=== PATIENT | male | born 1940 | race Caucasian/White ===

== ENCOUNTER 2022-10-17 09:58 | Outpatient (CLI) | payer MEDICARE, OTHER, SELFPAY ==
[2022-10-17 13:16] LABS: Chloride* 101 mmol/L (96-114); Potassium* 4.3 mmol/L (3.6-5.1); Sodium* 138 mmol/L (135-149)
[2022-10-17 13:18] LABS: Cholesterol* 134 mg/dL (90-199); Creatinine* 0.8 mg/dL (0.5-1.5); Estimated Glomerular Filt Rate 89 ml/min
[2022-10-17 13:19] LABS: Blood Urea Nitrogen* 20 mg/dL (7-30); Calcium* 9.8 mg/dL (8.4-10.6); Carbon Dioxide* 31 mmol/L (20-32); Glucose* 111 mg/dL (60-115); HDL Cholesterol* 51 mg/dL (>=40); LDL Cholesterol Calculated 66 mg/dL (<100); Triglycerides* 87 mg/dL (40-149)
[2022-10-17 13:50] LABS: PSA Screen* 1.51 ng/mL (0.10-4.00)
== END 2022-10-17 09:59 | disposition home or self-care (01) ==
PROVIDERS: PCP Internal Medicine; Visit Provider Internal Medicine
DX: E78.5 Hyperlipidemia, unspecified; N40.2 Nodular prostate without lower urinary tract symptoms; I10 Essential (primary) hypertension; Z12.5 Encounter for screening for malignant neoplasm of prostate
CPT/HCPCS: 80048; 80061; 84153

== ENCOUNTER 2022-10-30 13:32 | Emergency (ER) | payer MEDICARE, OTHER, SELFPAY ==
[2022-10-30 13:58] VITALS: BP 125/66; PULSE 78; RESP 18; TEMP 36.6; O2SAT 98; BMI 25.1
--- NOTE | 2022-10-30 14:23 | CRLHL7_ITS ---
For Patients: As a result of the Cures Act, medical imaging exams and procedure reports are released immediately into your electronic medical record. You may view this report before your referring provider. If you have questions, please contact your health care provider. Indication: Fall and anterior shoulder pain Technique: Left shoulder 3 views. Comparison: None Impression: There are degenerative changes of the acromioclavicular joint. Small fragment inferior to the glenoid which may represent small fracture fragment or more likely calcifications. No evidence of proximal humerus fracture or dislocation. Dictated by Prince Garcia MD @ 10/30/2022 3:20:38 PM (Electronically Signed)
--- NOTE | 2022-10-30 14:24 | ED_ITS ---
HPI - Fall General Chief Complaint: Fall/Minor Trauma Stated Complaint: Fall Shoulder Pain Time Seen by Provider: 10/30/22 13:59 History of Present Illness HPI Narrative: Rather active 82-year-old man presenting to the emergency department with complaint of left shoulder area pain. He was assisting and more elderly neighbor with her trash cans last night when he slipped and believes he fell directly on the shoulder or the anterior aspect. Has not noticed particular swelling or erythema. Has been using naproxen cream believe another [id number] treatment. This was unable to sleep due to the pain. He is review resisting movement of his left arm. Does have a history of right shoulder rotator cuff repair. Does not describe any radicular symptoms. Pain is with movement on the anterior aspect of the shoulder in particular. Did not hit his head there was no loss of consciousness no neck or back pain. Related Data Home Medications Medication Instructions Recorded Confirmed dorzolamide 22.3 mg-timolol 6.8 1 ophthalmic (eye) DAILY 10/17/22 10/17/22 mg/mL eye drops latanoprost 0.005 % eye drops 1 drp ophthalmic (eye) QDAY 10/17/22 10/17/22 omega-3 fatty acids 1,000 mg 1,000 mg PO QDAY 10/17/22 10/17/22 capsule saw palmetto PO DAILY 10/17/22 10/17/22 amitriptyline 10 mg tablet 10 mg PO BID 10/30/22 10/30/22 lorazepam 0.5 mg tablet 0.5 mg PO DAILY 10/30/22 10/30/22 tramadol 50 mg tablet 25 mg PO DAILY PRN pain 10/30/22 10/30/22 Previous Rx's Medication Instructions Recorded lorazepam 0.5 mg tablet 0.5 mg PO BID PRN anxiety #60 tabs 09/30/22 amitriptyline 10 mg tablet 10 mg PO BID #180 tabs 10/17/22 atorvastatin 40 mg tablet 40 mg PO QPM #90 tabs 10/17/22 valsartan 160 1 tab PO QDAY #90 tabs 10/17/22 mg-hydrochlorothiazide 12.5 mg tablet Allergies Allergy/AdvReac Type Severity Reaction Status Date / Time Cockroaches Allergy Severe allergy to Uncoded 10/17/22 09:23 feces Dust mites Allergy Mild Congested Uncoded 10/17/22 09:23 Review of Systems Status of ROS: Reports: 6 or more systems reviewed and unremarkable except as noted in History and below [facility] Medical History History of adenomatous polyp of colon (02/07/12) Surgical History History of arthroscopy of shoulder History of thumb surgery History of tonsillectomy (02/07/12) Status post cataract extraction Social History Smoking Status: Never smoker How often do you have a drink containing alcohol: monthly or less How many standard drinks containing alcohol do you have on a typical day: 1 or 2 AUDIT-C Alcohol total score: 1 Non-prescribed substance use: denies use Exam Narrative: Exam Narrative: Pleasant. Tall. Well-built. Head is atraumatic. Elevating his left shoulder. It seems generally a little swollen relative to the right. Neck is supple nontender back also nontender. Examination of the shoulder and chest there is no pain to palpation over the clavicle or the AC joint. He is sore to palpation over the anterior aspect of the humerus and the inferior to that into the neck a little bit. He has very limited internal rotation I think this is somewhat chronic does cause a little pain. Weakness to resisted internal rotation and good strength to external rotation. Limited also in neers. Abduction of the shoulder/arm elicits assistance and he has weakness to empty can testing. Intact flexion with good strength to the biceps. Sensation appears to be intact and well perfused distally. Const: Vital Signs, click to edit/add: Vital Signs - 24 hr 10/30/22 13:58 Temperature 97.8 F Pulse Rate [Right Pulse Oximeter] 78 Respiratory Rate 18 Blood Pressure [Ri ght Upper Arm] 125/66 Pulse Oximetry 98 Oxygen Delivery Me thod Room Air Documenting provider has reviewed patient's vital signs: yes Course Vital Signs Vital signs: Initial Vital Signs Temperature 97.8 F 10/30/22 13:58 Temperature Source Temporal Artery Scan 10/30/22 13:58 Pulse Rate 78 10/30/22 13:58 Pulse Rhythm 10/30/22 13:58 Respiratory Rate 18 10/30/22 13:58 Blood Pressure 125/66 10/30/22 13:58 Blood Pressure Mean 85 10/30/22 13:58 Blood Pressure Position Sitting 10/30/22 13:58 Pulse Oximetry 98 10/30/22 13:58 Oxygen Delivery Method 10/30/22 13:58 Vital Signs Temperature 97.8 F 10/30/22 13:58 Pulse Rate 78 10/30/22 13:58 Respiratory Rate 18 10/30/22 13:58 Blood Pressure 125/66 10/30/22 13:58 Pulse Oximetry 98 10/30/22 13:58 Oxygen Delivery Method 10/30/22 13:58 Temperature 97.8 F 10/30/22 13:58 Pulse Rate 78 10/30/22 13:58 Respiratory Rate 18 10/30/22 13:58 Blood Pressure 125/66 10/30/22 13:58 Pulse Oximetry 98 10/30/22 13:58 Oxygen Delivery Method 10/30/22 13:58 MDM - Fall MDM Narrative Medical decision making narrative: I think less likely a fracture and more likely shoulder strain/rotator cuff injury. Does need shoulder imaging though. Three-view of the left shoulder reviewed by me shows humerus in place. There is a small fragment on the inferior aspect of the glenoid wear I am not sure of significance. He was not actually tender to biceps flexion has good strength there. This would be near area of insertion for that. This might simply be osteoarthritic I would think involvement of subscapularis and supraspinatus given exam. Has own arm sling. Discharge Plan Discharge Clinical Impression: Injury of left rotator cuff, Left shoulder strain Patient Disposition: Home, Self-Care Condition: Stable Additional Instructions: Rest your shoulder over this next week by using the arm sling. I would continue to ice it 2 - 3 times daily over the next few days. I like the screw top icing bags. See handout on exercises for rotator cuff injury. Call to Orthopedics for follow-up this next week on advice of the emergency department. Call today if possible to schedule with them - phone number [phone] Over-read of images are pending. Can take up to 600 mg of ibuprofen per dose or up to 100 mg of your tramadol per dose. Prescriptions: No Action saw pratik PO DAILY latanoprost 0.005 % drops 1 drp ophthalmic (eye) QDAY dorzolamide-timolol 22.3-6.8 mg/mL drops 1 ophthalmic (eye) DAILY omega-3 fatty acids 1,000 mg capsule 1,000 mg PO QDAY amitriptyline 10 mg tablet 10 mg PO BID Qty: 180 3RF atorvastatin 40 mg tablet 40 mg PO QPM Qty: 90 3RF valsartan-hydrochlorothiazide 160-12.5 mg tablet 1 tab PO QDAY Qty: 90 3RF lorazepam 0.5 mg tablet 0.5 mg PO DAILY amitriptyline 10 mg tablet 10 mg PO BID tramadol 50 mg tablet 25 mg PO DAILY PRN (Reason: pain) lorazepam 0.5 mg tablet 0.5 mg PO BID PRN (Reason: anxiety) Qty: 60 0RF Follow Up/Referrals: Anupama Hays MD [Primary Care Provider] - Stand Alone Forms: [facility] Info Instructions
--- OUTSIDE RECORDS SUMMARY | 2022-10-30 14:55 | XMS_ITS | Clinical Summary ---
:1940 Author Organization [facility] [place] [address] Care Team Providers Name Role Phone Anupama Hays MD Primary Care Provider Allergies Active Allergy Reactions Severity Noted Date Comments Dust Mites Hives Low 08/30/2019 Medications Medication Sig Dispensed Refills Start Date End Date Status valsartan-hydrochlorot Take 1 tablet by 0 Active hiazide (DIOVAN HCT) mouth once daily. 320-25 mg per tablet amitriptyline (ELAVIL) Take 10 mg by 0 Active 10 mg tablet mouth at bedtime. LORazepam (ATIVAN) 0.5 Take 0.5 mg by 0 Active mg Tab mouth once daily. atorvastatin (LIPITOR) Take 20 mg by 0 Active 20 mg tablet mouth once daily. traMADol (ULTRAM) 50 Take 1 tablet by 0 12/25/2015 Active mg tablet mouth 2 times daily. dorzolamide-timolol Place 1 Drop into 12 08/24/2019 Active (COSOPT) 2-0.5 % both eyes 2 times ophthalmic solution daily. latanoprost (XALATAN) INSTILL ONE DROP 99 08/24/2019 Active 0.005 % ophthalmic IN BOTH EYES AT solution BEDTIME triamcinolone Apply topically to 80 g 1 08/06/2022 Active (ARISTOCORT; KENALOG) affected area(s) 0.1 % three times daily. creamIndications: Bee sting, undetermined intent, initial encounter Active Problems Problem Noted Date Prostate nodule 12/25/2015 Encounters Date Type Specialty Care Team Description 08/06/2022 Office Visit Kimberli Tom, RAQUEL Bee Stin g; Derm Problem 08/06/2022 Travel 08/06/2022 Telephone Alyssa Henriquez, RN Bee Sting (L forearm/) from Last 3 Months Immunizations Name Administration Dates Next Due AMB Influenza, IIV4 PF (=>6 mos Flulaval,Fluzone 08/30/2019 Fluarix)(Flu Clinic Only) COVID-19 vaccine (Flossonic 30mcg/0.3mL) PF, 1, 01/03/2021 MDV Influenza Virus, Unspecified 09/09/2021 Influenza, High-dose Inactivated 11/08/2015 Pneumococcal conj 13-Valent (Prevnar 13) 07/12/2015 Tdap 07/12/2015 Zoster (Zostavax-ZVL, live) 12/01/2012 Social History Tobacco Use Types Packs/Day Years Used Date Former Smoker Cigarettes Smokeless Tobacco: Never Used Tobacco Cessation: Counseling Given: Yes Comments: Social smoker only- does not r ecregino when he quit. Alcohol Use Standard Drinks/Week Comments Yes 0 (1 standard drink = 0.6 oz pure alcoho l) 1 drink per week Alcohol Habits Answer Date Recorded How often do you have a drink containing alcohol? 2-4 times a month 08/30/2019 How many drinks containing alcohol do you have on a 1 or 2 08/30/2019 typical day when you are drinking? How often do you have six or more drinks on one Never 08/30/2019 occasion? Comment: 1 drink per week 10/01/2021 Sex Assigned at Date Recorded Not on file Obstetrics History Last Filed Vital Signs Vital Sign Reading Time Taken Comments Blood Pressure 122/70 08/06/2022 2:38 PM CDT Pulse 63 08/06/2022 2:38 PM CDT Temperature 36.6 ??C (97.9 ??F) 08/06/2022 2:38 PM CDT Respiratory Rate 16 08/06/2022 2:38 PM CDT Oxygen Saturation 99% 08/06/2022 2:38 PM CDT Inhaled Oxygen Concentration - - Weight 86.2 kg (190 lb) 08/06/2022 2:38 PM CDT Height 182.9 cm (6') 08/18/2017 9:45 AM CDT Body Mass Index 25.77 08/18/2017 9:45 AM CDT Plan of Treatment Health Maintenance Due Date Last Done Comments Medicare Wellness for age 65+ 2007 Zoster (shingles) series for age 0201/26/2013 12/01/2012 50+ (2 of 3) Pneumococcal series for age 65+ (2 07/12/2016 07/12/2015 - PPSV23 if available, else PCV20) BMI (ht and wt on same day) for 08/18/2018 08/18/2017, 12/02 age 18+ COVID-19 vaccine series (5 - 06/27/2022 05/02/2022, 021, Booster for Pfizer series) 01/24/2021, Additiona l history exists Influenza for age 65+ 08/01/2022 09/09/2021, 08/30/2019, 11/08/2015 Depression screening for age 12+ 11/02/2022 11/02/2021 Tetanus booster 07/12/2025 07/12/2015 Tdap Completed 07/12/2015 Results Not on filefrom Last 3 Months Insurance Payer Benefit Plan / Subscriber ID Effective Dates Phone Addre ss Type Group MEDICARE PART B MEDICARE PART B [id number] 2007-Present ATTN: CLAIMS - HB USE ONLY HB ONLY [address] [place] [address] MEDICARE - PB MEDICARE PB [id number] 2007-Present ATT N: CLAIMS USE ONLY ONLY [address] [place] [address] [employer] [id number] 2019-Presen [address] [place] [address] Advance Directives Latest Code Status on File Code Status Date Activated Date Inactivated Comments Full Code 09/30/2012 10:55 AM 10/01/2012 2:26 AM Care Teams Progressive Care Unit Registered Nurse Relationship Specialty Start Date End Date Anupama Hays MD PCP - General Internal Medicine 09/23/121999 [facility] [place] [address]
--- NOTE | 2022-10-30 15:09 | ED.NURSE ---
DC teaching complete, all questions answered. Patient already has a sling, declines offer of sling today. Rotator cuff handout from Dr. Reaves provided. Patient will schedule follow up with ortho. Denies questions/concerns, patient leaves ED ambulatory.
== END 2022-10-30 15:39 | disposition home or self-care (01) ==
PROVIDERS: Emergency Provider Family Medicine; PCP Internal Medicine
DX: S46.012A Strain of muscle(s) and tendon(s) of the rotator cuff of left shoulder, initial encounter (principal); W01.0XXA Fall on same level from slipping, tripping and stumbling without subsequent striking against object, initial encounter
CPT/HCPCS: 73030; 99283

== ENCOUNTER 2022-11-19 09:57 | Outpatient (CLI) | payer MEDICARE, OTHER, SELFPAY ==
--- NOTE | 2022-11-19 10:15 | MR_ITS ---
[address] [address] Phone:?[phone] Fax:?[phone] Referring Physician Information: Joel Mo M.D. [id number] [facility] [address] Phone:?[phone] Fax:?[phone] Patient:?Nate Haider D.O.B:?1940 Sex:?Male Phone:?[phone] [facility] MRN:?[id number] Exam Date:?11/19/2022 ? EXAM: MRI of the LEFT SHOULDER, without contrast CLINICAL: Slipped on ice on October 30, 2022. Evaluate for rotator cuff tear. COMPARISONS: None available. TECHNICAL: MRI sequences of the left shoulder: Axials: PD, PDFS Coronals: PD, T2FS Sagittals: PDFS, T2 SEDATION: None. CONTRAST: None. FINDINGS: Rotator cuff: Supraspinatus/Infraspinatus: There is full-thickness tearing throughout the distal supraspinatus tendon with retraction of torn tendon fibers by approximately 2.2 cm. Mild edema along the periphery of the muscle. Mild tendinosis of the distal infraspinatus tendon, which otherwise appears intact. No significant fatty atrophy of the muscle bellies. Teres minor: No tendinosis, tear or atrophy. Subscapularis: Full-thickness tearing throughout the distal tendon with retraction of torn tendon fibers by approximately 2.3 cm. Associated increased fluid/hematoma within the superior aspect of the muscle belly. No evidence of significant fatty atrophy at this time. Bursae: Subacromial-subdeltoid: Increased fluid within the bursa secondary to full- thickness rotator cuff tendon tearing. Subcoracoid: No convincing subcoracoid bursal thickening/bursitis. Coracoacromial arch: Acromion morphology: Type I. No os acromiale. Acromiohumeral space: Within normal limits. Coracohumeral space: Within normal limits. Biceps tendon, long head: Moderate tendinosis of the intra-articular tendon. There is medial subluxation of the tendon as it extends along the superior aspect of the bicipital groove. No tendon disruption. Glenohumeral joint: Physiologic volume of joint fluid. Articular cartilage: Grade 2-3 chondral thinning is seen to involve the glenoid and inferomedial humeral head. Capsule: There is mild thickening and increased signal involving the inferior glenohumeral ligament with mild soft tissue edema about the inferior glenohumeral ligament consistent with sprain injury. Labrum: Scattered degenerative changes involve the majority of the glenoid labrum. Small perilabral cyst along the superior labrum/glenoid as seen on coronal series 4 images 12-13. Bones: Minimal degenerative peripheral marginal spurring involving the glenohumeral joint. Small subchondral cystic change involves the inferior glenoid with minimal subchondral reactive edema involving the inferomedial humeral head. No osseous fracture site is identified. Acromioclavicular joint: Advanced changes of arthrosis. No AC joint injury/widening. IMPRESSION: 1. Full-thickness tearing throughout the distal supraspinatus tendon with retraction of torn tendon fibers by approximately 2.2 cm. 2. Full-thickness tearing throughout the distal subscapularis tendon with retraction of torn tendon fibers by approximately 2.3 cm. 3. Moderate tendinosis of the intra-articular long head biceps tendon, with medial subluxation of the long head biceps tendon as it extends along the superior aspect of the bicipital groove. 4. Mild sprain injury involving the inferior glenohumeral ligament. 5. Scattered degenerative changes involving the majority of the glenoid labrum. 6. Grade 2-3 chondral thinning involving the glenoid and inferomedial humeral head. Mild osseous changes of glenohumeral arthrosis. 7. Advanced AC joint arthrosis. [facility] Electronically signed on 11/22/2022 8:15:00 PM by Neel Almanza D.O.
== END 2022-11-19 09:58 | disposition home or self-care (01) ==
LOC: MRI 09:58
PROVIDERS: PCP Internal Medicine; Visit Provider Orthopaedic Surgery
DX: M25.512 Pain in left shoulder (principal); M75.102 Unspecified rotator cuff tear or rupture of left shoulder, not specified as traumatic; M19.012 Primary osteoarthritis, left shoulder; S43.432A Superior glenoid labrum lesion of left shoulder, initial encounter
CPT/HCPCS: 73221

== ENCOUNTER 2023-09-09 10:12 | Outpatient (CLI) | payer MEDICARE, OTHER, SELFPAY | END 2023-09-09 10:13 | disposition home or self-care (01) | PROVIDERS: PCP Internal Medicine; Visit Provider Internal Medicine | DX: I10 Essential (primary) hypertension (principal); E78.5 Hyperlipidemia, unspecified | CPT/HCPCS: 80048; 80061 ==

== ENCOUNTER 2023-10-13 12:50 | Outpatient (CLI) | payer MEDICARE, OTHER, SELFPAY | END 2023-10-13 12:51 | disposition home or self-care (01) | LOC: RAD 12:51 | PROVIDERS: PCP Internal Medicine; Visit Provider Internal Medicine | DX: I35.0 Nonrheumatic aortic (valve) stenosis (principal) | CPT/HCPCS: 93306 ==

== ENCOUNTER 2024-03-23 17:35 | Emergency (ER) | payer MEDICARE, OTHER, SELFPAY ==
[2024-03-23 17:41] VITALS: BP 148/77; PULSE 72; RESP 20; TEMP 36.6; O2SAT 99; BMI 24.4
--- NOTE | 2024-03-23 17:57 | ED.GENADULT ---
HPI - General Adult General Chief complaint: Fall/Minor Trauma Stated complaint: Fell off a shovel, right side lacerations Time Seen by Provider: 03/23/24 17:40 History of Present Illness HPI narrative: Patient fell backward onto a retaining wall while balancing both feet on a shovel to dig a hole. No LOC and did not hit head. Has pain on right side of back below ribs and abrasions/ shearing to right forearm and elbow area. 84-year-old man presenting to the emergency department after falling off of a shovel. Had been balancing on at, standing on it to 8 in getting into the dirt. Slipped backward into a retaining wall. Did not strike his head. There was no loss of consciousness. No neck pain. Did scrape up his right arm. Primary complaint is pain in the right mid back. Rotation, standing up really exacerbates pain. Is breathing okay. Related Data Home Medications Medication Instructions Recorded Confirmed dorzolamide 22.3 mg-timolol 6.8 1 ophthalmic (eye) DAILY 10/17/22 10/08/23 mg/mL eye drops latanoprost 0.005 % eye drops 1 drp ophthalmic (eye) QDAY 10/17/22 10/08/23 omega-3 fatty acids 1,000 mg 1,000 mg PO QDAY 10/17/22 10/08/23 capsule saw palmetto PO DAILY 10/17/22 10/08/23 Previous Rx's Medication Instructions Recorded amitriptyline 10 mg tablet 20 mg (2 x 10 mg) PO QHS #180 tabs 09/09/23 atorvastatin 40 mg tablet 40 mg PO QPM #90 tabs 09/09/23 valsartan 160 1 tab PO QDAY #90 tabs 12/02/23 mg-hydrochlorothiazide 12.5 mg tablet lorazepam 0.5 mg tablet 0.5 mg PO BID PRN anxiety #60 tabs 01/01/24 tramadol 50 mg tablet 25 - 50 mg (0.5 - 1 x 50 mg) PO 02/10/24 Q6H PRN pain #120 tabs Allergies Allergy/AdvReac Type Severity Reaction Status Date / Time Cockroaches Allergy Severe allergy to Uncoded 10/08/23 09:18 feces Dust mites Allergy Mild Congested Uncoded 10/08/23 09:18 Review of Systems Status of ROS: Reports: 6 or more systems reviewed and unremarkable except as noted in History and below [facility] Surgical History Status post cataract extraction ?Z98.49 - Cataract extraction status, unspecified eye (ICD-10) History of tonsillectomy (02/07/12) ?Z90.89 - Acquired absence of other organs (ICD-10) History of thumb surgery (02/07/17) ?Z98.890 - Other specified postprocedural states (ICD-10) History of arthroscopy of shoulder (07/12/16) ?Z98.890 - Other specified postprocedural states (ICD-10) Social History Smoking Status: Never smoker How often do you have a drink containing alcohol: monthly or less How many standard drinks containing alcohol do you have on a typical day: 1 or 2 AUDIT-C Alcohol total score: 1 Non-prescribed substance use: denies use Little interest or pleasure in doing things: not at all Feeling down, depressed, or hopeless: not at all Exam Narrative: Exam Narrative: Pleasant. Restless. Seated gingerly at the edge of the bed. Head is atraumatic. Cranial nerves 2-12 intact. Lungs are clear with equal expansion excursion the chest. Neck is nontender. Midline back is nontender. Hard to find a point of tenderness in particular but I do see in the low right mid ribs underneath the perispinal musculature. Is not sore in the soft flank. I do not see outward indication of injury/bruising/erythema. Abdomen otherwise is soft and nontender. Moving all extremities without difficulty. Examination of the right arm shows skin tear along the extensor surface irregular without replaced double tissue really along the extensor forearm. Larger skin tear maximal dimension a little more than 2 in superior to the right elbow on the back of the lower upper arm. Flexes and extending the elbow without apparent difficulty. Oozing a little blood but generally controlled. No injury apparently to the joint. Heart in regular rate and rhythm. Const: Vital Signs, click to edit/add: Vital Signs - 24 hr 03/23/24 17:41 Temperature 97.9 F Pulse Rate [Pulse Oximeter] 72 Respiratory Rate 20 Blood Pressure [Ri ght Upper Arm] 148/77 H Pulse Oximetry 99 Oxygen Delivery Me thod Room Air Documenting provider has reviewed patient's vital signs: yes Course Vital Signs Vital signs: Initial Vital Signs Temperature 97.9 F 03/23/24 17:41 Temperature Source Temporal Artery Scan 03/23/24 17:41 Pulse Rate 72 03/23/24 17:41 Respiratory Rate 20 03/23/24 17:41 Blood Pressure 148/77 H 03/23/24 17:41 Blood Pressure Mean 100 03/23/24 17:41 Blood Pressure Position Sitting 03/23/24 17:41 Pulse Oximetry 99 03/23/24 17:41 Oxygen Delivery Method Room Air 03/23/24 17:41 Vital Signs Temperature 97.9 F 03/23/24 17:41 Pulse Rate 72 03/23/24 17:41 Respiratory Rate 20 03/23/24 17:41 Blood Pressure 148/77 H 03/23/24 17:41 Pulse Oximetry 99 03/23/24 17:41 Oxygen Delivery Method Room Air 03/23/24 17:41 Temperature 97.9 F 03/23/24 17:41 Pulse Rate 72 03/23/24 17:41 Respiratory Rate 20 03/23/24 17:41 Blood Pressure 148/77 H 03/23/24 17:41 Pulse Oximetry 99 03/23/24 17:41 Oxygen Delivery Method Room Air 03/23/24 17:41 Medical Decision Making MDM Narrative Medical decision making narrative: I do not think that the arm will require imaging. We will repair the skin tears though; at least replace them. Would also x-ray the right chest. Does not involve the lower flank I do not think that there is likely to be a kidney injury here. Contemplated urinalysis but this was not ultimately done prior to departure. Forearm is cleansed and bandaged with bacitracin. I would do return to examine again removing a small amount of tissue. After cleansing again above the right elbow with Shur-Clens, I did replace this flap of T shaped laceration and covered with Tegaderm. Given more supplies for discharge. X-ray of the right ribs with PA chest by my read is without clear rib fracture. Nothing notably displaced. I would doubt liver injury as well. Oxygenating well. I am not sure that a rib binder in this case would be beneficial might actually cause him more discomfort. This could simply be a bruised rib; also painful. He is quite concerned though about his pain. Notes that he takes tramadol regularly for back pain and wondering what else he could have at least to get by temporarily. We discussed options. Will be prescribing small quantity of [place]. See patient discharge plan for further discussion Over-read by radiology available Study:?XRay-Chest Right RIBS-03/23/2024 6:52:46 PM Ordering Physician:?DR REAVES Final Report: INDICATION: Fall. Rib injury. COMPARISON: None. TECHNIQUE: Frontal view of the chest. Dedicated views of the right ribs. FINDINGS: Lungs are clear. No pleural effusion. No pneumothorax. Normal cardiomediastinal silhouette. No displaced fractures of the right ribs. IMPRESSION: No acute findings. Lab Data Labs: Lab Results 03/23/24 Range/Units 18:40 Urine Color Yellow (Yellow) Urine Appearance Clear (Clear) Urine pH 6.0 (5.0-8.5) Ur Specific Knapp >= 1.030 (1.000-1.030) Urine Protein Negative (Negative) Urine Glucose (UA) Negative (Negative) Urine Ketones Negative (Negative) Urine Blood Negative (Negative) Urine Nitrite Negative (Negative) Urine Bilirubin Negative (Negative) Urine Urobilinogen 0.2 (0.2-1.0) Ur Leukocyte Esterase Negative (Negative) Urine RBC 0-2 (0-2) Urine WBC 0-2 (0-5) Ur Squamous Epith Cells None (None-Few) Urine Bacteria None (None) Discharge Plan Discharge Clinical Impression: Acute flank pain, Rib pain on right side, Multiple skin tears Patient Disposition: Home w/ Parent or Adult Condition: Improved Additional Instructions: Change dressing daily over your forearm with antibiotic ointment and Telfa. One week I think should be sufficient. Above the elbow try to keep that Tegaderm on until it just falls off trimming edges as a peel-away to encourage adherence or replace with another as necessary or change to Telfa and antibiotic if you prefer. Return for persistent and increasing, uncontrolled pain or shortness of breath, fever, hematuria. Can take up to 800 mg of ibuprofen or up to 1000 mg of acetaminophen per dose. Alternative to the ibuprofen might be up to 500 mg naproxen 2 times daily. [place] from [facility]. If Radiology sees something more in your imaging I will give you a call. Prescriptions: No Action atorvastatin 40 mg tablet 40 mg PO QPM Qty: 90 3RF amitriptyline 10 mg tablet 20 mg PO QHS Qty: 180 3RF saw palmetto PO DAILY latanoprost 0.005 % drops 1 drp ophthalmic (eye) QDAY dorzolamide-timolol 22.3-6.8 mg/mL drops 1 ophthalmic (eye) DAILY omega-3 fatty acids 1,000 mg capsule 1,000 mg PO QDAY valsartan-hydrochlorothiazide 160-12.5 mg tablet 1 tab PO QDAY Qty: 90 2RF lorazepam 0.5 mg tablet 0.5 mg PO BID PRN (Reason: anxiety) Qty: 60 3RF tramadol 50 mg tablet 25 - 50 mg PO Q6H PRN (Reason: pain) Qty: 120 3RF Follow Up/Referrals: Anupama Hays MD [Primary Care Provider] - Stand Alone Forms: [facility] Info Instructions
--- NOTE | 2024-03-23 18:11 | XR_ITS ---
Patient: LANI RYDER Facility:?[facility] Patient ID:?[id number] Site Patient ID:?[id number]. Site :?[id number] Study:?XRay-Chest Right RIBS-03/23/2024 6:52:46 PM Ordering Physician:?DR BARKER Final Report: INDICATION: Fall. Rib injury. COMPARISON: None. TECHNIQUE: Frontal view of the chest. Dedicated views of the right ribs. FINDINGS: Lungs are clear. No pleural effusion. No pneumothorax. Normal cardiomediastinal silhouette. No displaced fractures of the right ribs. IMPRESSION: No acute findings. Dictated by Deepak Otto MD @ 03/23/2024 11:14:10 PM Signed by:?Deepak Otto MD @03/23/2024 11:14:10 PM (Electronic Signature)
[2024-03-23 18:50] LABS: Appearance Urine Clear (Clear); Bilirubin Urine Negative (Negative); Blood Urine Negative (Negative); Color Urine Yellow (Yellow); Glucose Urine Negative (Negative); Ketones Urine Negative (Negative); Leukocyte Esterase Urine Negative (Negative); Nitrite Urine Negative (Negative); Protein Urine Negative (Negative); Specific Gravity Urine >= 1.030 (1.000-1.030); Urobilinogen Urine 0.2 (0.2-1.0)
--- OUTSIDE RECORDS SUMMARY | 2024-03-23 18:54 | XMS_ITS | Clinical Summary ---
Author Name Unknown Organization [facility] Address [place], [place] [address] Care Team Providers Care Social Media Assistant Name Role Phone Anupama Hays MD Primary Care Provider [phone] Allergies Active Allergy Reactions Criticality Noted Date Comments Dust Mites Hives Low 08/30/2019 Medications Medication Sig Dispensed Refills Start Date End Date Status valsartan-hydrochlorot hiazide (DIOVAN HCT) 320-25 mg per tablet Take 1 tablet by mouth once daily. Active amitriptyline (ELAVIL) 10 mg tablet Take 10 mg by mouth at bedtime. Active LORazepam (ATIVAN) 0.5 mg Tab Take 0.5 mg by mouth once daily. Active atorvastatin (LIPITOR) 20 mg tablet Take 20 mg by mouth once daily. Active traMADol (ULTRAM) 50 mg tablet Take 1 tablet by mouth 2 times daily. 0 12/25/2015 Active dorzolamide-timolol (COSOPT) 2-0.5 % ophthalmic solution Place 1 Drop into both eyes 2 times daily. 12 08/24/2019 Active latanoprost (XALATAN) 0.005 % ophthalmic solution INSTILL ONE DROP IN BOTH EYES AT BEDTIME 99 08/24/2019 Active triamcinolone (ARISTOCORT; KENALOG) 0.1 % creamIndications:Bee sting, undetermined intent, initial encounter Apply topically to affected area(s) three times daily. 80 g 1 08/06/2022 Active Active Problems Problem Noted Date Diagnosed Date Prostate nodule 12/25/2015 Immunizations Name Administration Dates Next Due AMB Influenza, IIV4 PF (=>6 mos Flulaval,Fluzone Fluarix)(Flu Clinic Only) 08/30/2019 COVID-19 vaccine ([employer] 30mcg/0.3mL) P F, MDV 01/24/2021,01/03/2021 Influenza Virus, Unspecified 09/09/2021 Influenza, High-dose Inactivated 11/08/2015 Pneumococcal conj 13-Valent (Prevnar 13) 015 Tdap 07/12/2015 Zoster (Zostavax-ZVL, live) 12/01/2012 Social History Tobacco Use Types Packs/Day Years Used Date Smoking Tobacco: Former Cigarettes Smokeless Tobacco: Never Tobacco Cessation:Counseling Given: Yes Comments:Social smoker only- does not recall when he quit. Alcohol Use Standard Drinks/Week Comments Yes 0 (1 standard drink = 0.6 oz pur e alcohol) 1 drink per week PHQ-2 Answer Date Recorded PHQ-2 TOTAL SCORE 0 11/02/2021 Social Connections Answer Date Recorded Frequency of Communication with Friends and Fami ly Not on file 12/01/2021 Financial Resource Strain Answer Date R ecorded Difficulty of Paying Living Expenses Not on file 12/01/2021 Difficulty of Paying Living Expenses Not on file 12/01/2021 Sex and Gender Information Value Date Recorded Sex Assigned at Not on file Gender Identity Not on file Sexual Orientation Not on file Obstetrics History Last Filed Vital Signs Vital Sign Reading Time Taken Comments Blood Pressure 122/70 08/06/2022 2:38 PM CDT Pulse 63 08/06/2022 2:38 PM CDT Temperature 36.6 ??C (97.9 ??F) 08/06/2022 2:38 PM CD T Respiratory Rate 16 08/06/2022 2:38 PM CDT [...] 65+ 2007 Zoster (shingles) series for age 50+ (2 of 3) 01/26/2013 12/01/2012 Pneumococcal series for age 65+ (2 of 2 - PPSV23 or PCV20) 07/12/2016 07/12/2015 BMI (ht and wt on same day) for age 18+ 08/18/2018 08/18/2017, 12/25/2015 Depression screening for age 12+ 11/02/2022 11/02/20 21 Influenza for age 65+ 08/01/2024 09/09/2021 , 08/30/2019, 11/08/2015 Tetanus booster 07/12/2025 07/12/2015 Tdap Completed 07/12/2015 COVID-19 vaccine series Completed 09/02/20, 10/01/2022, 05/02/2022, Additional history exists Advance Directives * Full Code (Latest Code Status on File) Date Activated Date Inactivated Comments 09/30/2012 10:55 AM 10/01/2012 2:26 AM Care Teams Social Media Assistant Relationship Specialty Start Date End Date Anupama Hays MD [address] [place] [address] PCP - General Internal Medicine 09/23/12
[2024-03-23 18:55] LABS: RBC Urine 0-2 (0-2); WBC Urine 0-2 (0-5)
== END 2024-03-23 19:30 | disposition home or self-care (01) ==
PROVIDERS: Emergency Provider Family Medicine; PCP Internal Medicine
DX: S50.811A Abrasion of right forearm, initial encounter (principal); R07.81 Pleurodynia; W18.30XA Fall on same level, unspecified, initial encounter
CPT/HCPCS: 71101; 81001; 99284

== ENCOUNTER 2024-08-12 15:15 | Outpatient (RCR) | payer MEDICARE, OTHER, SELFPAY ==
--- NOTE | 2024-06-17 13:39 | PT.OPEX ---
[facility] [place] Outpatient Eval PT [facility] Outpatient Eval Start: 06/17/24 07:40 Freq: Status: Active Protocol: Document 06/17/24 07:40 BONNIE (Rec: 06/17/24 13:24 BONNIE [id number]) E-signed By Ubaldo Salvador PT Physical Therapy Outpatient Evaluation Insurance Information Insurance Name Medicare B Medical Diagnosis Acute on chronic LBP Treating Diagnosis Decreased right hip mobility Apparent leg length discrepancy Decreased lumbar mobility and core/gluteal weakness Referring MD Hays Subjective Preferred Name Nate Alan Pt. reports having a LBP flare 2 weeks ago after playing tennis followed by running on hills. He felt good during the activity but then couldn't get out of bed due to pain the next morning. It has calmed down some since then but he hasn't been able to get back to his regular exercise activities yet. He is walking about a 1/3 of his normal daily amount currently but his goal is to go to the [facility] 3x/week for his regular workouts. 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 Unfortunately in March of this year he fell backwards on a brick wall hitting his lower right ribs and back which set him back quite a bit. He had slowly improved his function leading up to the recent pain flare 2 weeks ago. PMH includes right shoulder RCR, left shoulder RCT, HTN, arthritis, neck pain, and chronic LBP. He had X-rays after his fall in March which didn't show any fractures. Pt. states that he is about 10% normal function currently compared to his regular 70% function limited by his chronic LBP. Pain Comments 3 Date of Last Physician Visit 06/15/24 Current Work Status Retired Objective Other/Pertinent Objective Posture: apparent leg length difference with right leg shorter with compensatory spinal curvature with left convexity. Flattened lumbar spine. Gait: Slowed ambulation with harder step down on right LE due to apparent shortening with decreased rotation in lumbopelvic region LROM: All motions moderately limited with left sidebending and right rotation most limited pattern Hip ROM: left WFL for age; right limited ER to 25 deg and IR to 5 deg. SLR and slump testing negative bilat. Palpation: hypertonus of lumbar paraspinals and gluteal muscles Strength: gluteus and core deconditioning Assessment Assessment/Impression Objectively, pt. demonstrates; slowed gait with shorter right LE and guarded movement pattern and decreased lumbopelvic rotation; significant tightness and restriction of right hip compared to left; core and gluteal deconditioning; 1/4-1/ 2 inch leg length discrepancy measured with tape from ASIS to medial malleolus; left spinal convexity curvature; decreased lumbar stability during functional movements; negative slump and SLR testing ; right gluteal hypertonus and tightness; and significant loss of trunk AROM due to guarding, stiffness, and reduced stability. He would benefit from skilled therapy working on a progressive HEP addressing above deficits. Primary Functional Limitations walking, exercising, bending, lifting Plan of Care Rehabilitation Potential Excellent Physical Therapy Goals 1. Pt. will be independent with HEP for self maintenance in 8-12 weeks. 2. Pt. will demonstrate improved right hip and lumbopelvic mobility and core strength in 8-12 weeks. 3. Pt. will be able to bend and lift for normal ADL's back to pre-flare level in 8-12 weeks. 4. Pt. will be able to exercise at [facility] normally again in 8-12 weeks. Coordination/Communication With Referral Source Treatment Plan/Direct Interventions Joint Mobilization,Manual Therapy,Neuromuscular Re-ed, Self-Care/Home Management, Therapeutic Exercises Frequency/Duration Weekly to every other week for 8-12 weeks. Patient Will Be Discharged From Therapy Independent w/HEP, Independently Progressing Evaluation Billing Complexity Moderate Certification Information Initial Certification Date 06/17/24 Ending Certification Date 09/15/24 Provider Signature Required Yes Provider Signature Shows Agreement With POC & Medical Necessity Physician NPI Number Write NPI# Here Physician Comment/Change : Physician Signature & Date Requested Please Sign/Date Here
== END 2024-09-20 09:25 | disposition home or self-care (01) ==
PROVIDERS: PCP Internal Medicine; Visit Provider Internal Medicine
DX: M54.50 Low back pain, unspecified (principal); G89.29 Other chronic pain; Z74.09 Other reduced mobility; M62.81 Muscle weakness (generalized); Z51.89 Encounter for other specified aftercare
CPT/HCPCS: 97110; 97140; 97162

== ENCOUNTER 2024-11-04 08:37 | Outpatient (CLI) | payer MEDICARE, OTHER, SELFPAY | END 2024-11-04 08:38 | disposition home or self-care (01) | PROVIDERS: PCP Internal Medicine; Visit Provider Internal Medicine | DX: I10 Essential (primary) hypertension (principal); E78.5 Hyperlipidemia, unspecified | CPT/HCPCS: 80048; 80061 ==

== ENCOUNTER 2025-11-02 08:06 | Outpatient (CLI) | payer MEDICARE, OTHER, SELFPAY | END 2025-11-02 08:07 | disposition home or self-care (01) | LOC: NFLDREF 11-04 14:09 | PROVIDERS: PCP Internal Medicine; Referring Provider Internal Medicine; Visit Provider Internal Medicine | DX: E78.5 Hyperlipidemia, unspecified (principal); I10 Essential (primary) hypertension | CPT/HCPCS: 80048; 80061 ==